=== PATIENT | male | born 1955 | race Caucasian/White ===

== ENCOUNTER 2021-01-22 16:22 | Outpatient (CLI) | payer MEDICARE ==
[2021-01-23 00:20] LABS: SARS-CoV-2 PCR by NAA Not Detected (NotDetected)
== END 2021-01-22 16:23 | disposition home or self-care (01) ==
LOC: LABBT 16:22
PROVIDERS: ATTEND Orthopaedic Surgery Hand Surgery
DX: Z01.818 Encounter for other preprocedural examination (principal); G56.02 Carpal tunnel syndrome, left upper limb; Z20.822 Contact with and (suspected) exposure to COVID-19
CPT/HCPCS: U0003; U0005

== ENCOUNTER 2021-01-27 11:32 | Day surgery (SDC) | payer MEDICARE ==
[2021-01-26 11:50] VITALS: BMI 40.6
[2021-01-27] MEDS ORDERED: Bacitracin Zinc Ointment 30 gm TUBE ONE (13:02)
[2021-01-27] MEDS ORDERED: Bupivacaine PF 0.5% 30 ML VIAL ONE (13:02)
[2021-01-27] MEDS ORDERED: Betamet Acet/Betamet Na Ph 30 MG/5 ML VIAL ONE (13:02)
[2021-01-27] MEDS ORDERED: Fentanyl 100 MCG/2 ML VIAL ONE (13:36)
[2021-01-27] MEDS ORDERED: Ondansetron PF 4 MG/2 ML Vial ONE (13:40)
[2021-01-27] MEDS ORDERED: PROPOFOL 200 MG/20 ML VIAL ONE (13:40)
[2021-01-27] MEDS ORDERED: Ketorolac Tromethamine 30 MG/ML VIAL ONE (13:40)
[2021-01-27] MEDS ORDERED: Dexamethasone 20 MG/5 ML VIAL ONE (13:40)
[2021-01-27] MEDS ORDERED: Lidocaine 1% PF 5 ML VIAL ONE (13:40)
== END 2021-01-27 15:55 | disposition home or self-care (01) ==
LOC: SDC 11:32
PROVIDERS: ATTEND Orthopaedic Surgery Hand Surgery
PROC: 01N50ZZ Release Median Nerve, Open Approach (ICD-10-PCS; principal; 2021-01-27)
DX: G56.02 Carpal tunnel syndrome, left upper limb (principal); E11.9 Type 2 diabetes mellitus without complications; E78.5 Hyperlipidemia, unspecified; I10 Essential (primary) hypertension; M17.9 Osteoarthritis of knee, unspecified; Z79.84 Long term (current) use of oral hypoglycemic drugs; Z79.899 Other long term (current) drug therapy; Z87.891 Personal history of nicotine dependence; Z88.2 Allergy status to sulfonamides
CPT/HCPCS: J0690; J0702; J1100; J1885; J2405; J2704; J3010; S0020

== ENCOUNTER 2021-05-12 07:38 | Outpatient (CLI) | payer MEDICARE | END 2021-05-12 07:39 | disposition home or self-care (01) | LOC: TBSIIMAG 07:38 | PROVIDERS: ATTEND Orthopaedic Surgery Hand Surgery | DX: S62.155A Nondisplaced fracture of hook process of hamate [unciform] bone, left wrist, initial encounter for closed fracture (principal); S63.592A Other specified sprain of left wrist, initial encounter ==

== ENCOUNTER 2021-07-28 13:55 | Emergency (ER) | payer MEDICARE, OTHER ==
[2021-07-28] MEDS ORDERED: Ketorolac Tromethamine 30 MG/ML VIAL ONE (15:42)
== END 2021-07-28 16:31 | disposition home or self-care (01) ==
LOC: ERS 13:55
DX: M51.36 Other intervertebral disc degeneration, lumbar region (principal); I10 Essential (primary) hypertension; E11.9 Type 2 diabetes mellitus without complications; E66.9 Obesity, unspecified; F17.210 Nicotine dependence, cigarettes, uncomplicated
CPT/HCPCS: 72100; 72220; 96372; J1885

== ENCOUNTER 2021-09-16 15:17 | Outpatient (CLI) | payer MEDICARE, OTHER | END 2021-09-16 15:18 | disposition home or self-care (01) | LOC: BICRAD 15:17 | PROVIDERS: ATTEND Internal Medicine Rheumatology | DX: M17.11 Unilateral primary osteoarthritis, right knee (principal); M25.561 Pain in right knee; M25.461 Effusion, right knee ==

== ENCOUNTER 2022-04-02 13:51 | Inpatient (IN) | payer MEDICARE ==
[2022-04-02] MEDS ORDERED: Cefepime 2 GM VIAL ONE (14:19)
[2022-04-02] MEDS ORDERED: VANCOMYCIN 2 GRAM/500 ML BAG 2 GM in Premix Bag 1 BAG IVPB SCH (14:45)
[2022-04-02 14:58] LABS: #Eosinphils 0.1 thou/uL (0.0-0.7); #Lymphocytes 1.7 thou/uL (1.20-3.40); #Monocytes 0.6 thou/uL (0.11-0.59); #Neutrophils 7.8 thou/uL (1.40-6.50); %Basophils 0.1 % (0.0-1.0); %Eosinophils 0.5 % (0.0-10.0); %Lymphocytes 16.6 % (21.0-51.0); %Monocytes 6.1 % (0.0-10.0); %Neutrophils 76.7 % (42.0-75.0); Mean Corpuscular HGB CONC 34.7 g/dL (32.0-36.0); Mean Corpuscular Hemoglobin 32.4 pg (27.0-31.0); Mean Corpuscular Volume 93.4 fL (78.0-98.0); Mean Platelet Volume 9.4 fL (7.4-10.4); Platelet Count 120 thou/uL (130-400); RBC Distribution Width 11.9 % (11.5-14.5); Red Blood Cell (RBC) Count 4.31 mill/uL (4.70-6.10); White Blood Cell (WBC) Count 10.2 thou/uL (4.8-10.8)
[2022-04-02 15:20] LABS: ALT (SGPT) 51 U/L (8-55); AST (SGOT) 35 U/L (5-34); Alkaline Phosphatase 59 U/L (40-110); Anion Gap 16 mmol/L (10-20); BUN (Urea Nitrogen) 21 mg/dL (8.4-25.7); Bilirubin, Total 0.7 mg/dL (0.2-1.2); Calc. Creatinine Clearance 0 mL/min (70-130); Calcium 8.8 mg/dL (7.8-10.44); Carbon Dioxide 22 mmol/L (23-31); Chloride 101 mmol/L (98-107); Estimated GFR 77; Globulin 3.2 g/dL (2.4-3.5); Glucose 295 mg/dL (80-115); Protein, Total 7.2 g/dL (5.8-8.1); Sodium 135 mmol/L (136-145)
[2022-04-02] MEDS ORDERED: Dextrose 50% Abboject 50 ML SYRINGE SLOW IVP PRN (15:57)
[2022-04-02] MEDS ORDERED: Dextrose 5% in Water 1,000 ML IV PRN (15:57)
[2022-04-02 16:24] LABS: Bilirubin Negative (Negative); Blood, Urine Negative (Negative); Clarity Clear (Clear); Glucose, Urine (Dipstick) Greater than 1000 mg/dL (Negative); Ketone, Urine Negative (Negative); Leukocyte Negative Leu/uL (Negative); Nitrite Negative (Negative); Protein, Urine (Dipstick) Negative (Neg-Trace); Specific Gravity, Urine 1.023 (1.002-1.036); Urobilinogen 6 mg/dL (Less than 2); pH, Urine 6.5 (5.0-9.0)
[2022-04-02 17:51] LABS: Lactic Acid 2.2 mmol/L (0.5-2.2)
[2022-04-02] MEDS: Sodium Chloride 0.9% 1,000 ML IV SCH (18:02)
[2022-04-02] MEDS: HumaLOG 300 UNITS/3 ML VIAL SC PRN ×2 (18:09→21:28)
[2022-04-02 20:18] VITALS: BMI 40.2
[2022-04-02] MEDS ORDERED: Vancomycin 1 GM in Premix Bag 1 BAG IVPB SCH (21:00)
[2022-04-03] MEDS: cefTRIAXone\\ROCEPHIN 1 GM in Sodium Chloride 0.9% 100 ML IVPB SCH (02:35)
[2022-04-03 05:57] LABS: #Basophils 0.1 thou/uL (0.0-0.2); #Eosinphils 0.1 thou/uL (0.0-0.7); #Lymphocytes 2.1 thou/uL (1.20-3.40); #Monocytes 0.6 thou/uL (0.11-0.59); #Neutrophils 3.6 thou/uL (1.40-6.50); %Basophils 0.8 % (0.0-1.0); %Eosinophils 1.1 % (0.0-10.0); %Lymphocytes 32.7 % (21.0-51.0); %Monocytes 9.1 % (0.0-10.0); %Neutrophils 56.3 % (42.0-75.0); Hemoglobin 12.5 g/dL (14.0-18.0); Mean Corpuscular HGB CONC 33.8 g/dL (32.0-36.0); Mean Corpuscular Hemoglobin 31.4 pg (27.0-31.0); Mean Corpuscular Volume 92.9 fL (78.0-98.0); Mean Platelet Volume 9.5 fL (7.4-10.4); Platelet Count 117 thou/uL (130-400); RBC Distribution Width 11.9 % (11.5-14.5); Red Blood Cell (RBC) Count 3.98 mill/uL (4.70-6.10); White Blood Cell (WBC) Count 6.4 thou/uL (4.8-10.8)
[2022-04-03 06:11] LABS: Anion Gap 14 mmol/L (10-20); BUN (Urea Nitrogen) 15 mg/dL (8.4-25.7); Calc. Creatinine Clearance 161 mL/min (70-130); Calcium 8.2 mg/dL (7.8-10.44); Carbon Dioxide 22 mmol/L (23-31); Chloride 105 mmol/L (98-107); Estimated GFR 94; Glucose 243 mg/dL (80-115); Potassium 3.9 mmol/L (3.5-5.1); Sodium 137 mmol/L (136-145)
[2022-04-03] MEDS: Vancomycin 1.5 GRAM/300 ML BAG 1.5 GM in Premix Bag 1 BAG IVPB SCH ×2 (06:15→18:42)
[2022-04-03] MEDS: Sodium Chloride 0.9% 1,000 ML IV SCH ×2 (06:15→18:42)
[2022-04-03] MEDS: HumaLOG 300 UNITS/3 ML VIAL SC PRN ×3 (06:20→20:43)
[2022-04-03] MEDS: Enoxaparin Sodium 40 MG/0.4 ML SYRINGE SC SCH (09:06)
[2022-04-03] MEDS ORDERED: Pioglitazone HCl 15 MG TAB PO SCH (10:15)
[2022-04-03] MEDS ORDERED: Tamsulosin HCl 0.4 MG CAP PO SCH (10:15)
[2022-04-03] MEDS: Gabapentin 300 MG CAP PO SCH ×2 (14:39→20:40)
[2022-04-03] MEDS: metFORMIN 500 MG TAB PO SCH (16:53)
[2022-04-04] MEDS: cefTRIAXone\\ROCEPHIN 1 GM in Sodium Chloride 0.9% 100 ML IVPB SCH (02:57)
[2022-04-04 05:27] LABS: #Eosinphils 0.2 thou/uL (0.0-0.7); #Lymphocytes 1.9 thou/uL (1.20-3.40); #Monocytes 0.5 thou/uL (0.11-0.59); %Basophils 0.5 % (0.0-1.0); %Lymphocytes 33.2 % (21.0-51.0); %Monocytes 9.5 % (0.0-10.0); %Neutrophils 52.8 % (42.0-75.0); Hemoglobin 13.2 g/dL (14.0-18.0); Mean Corpuscular HGB CONC 34.5 g/dL (32.0-36.0); Mean Corpuscular Hemoglobin 32.6 pg (27.0-31.0); Mean Corpuscular Volume 94.3 fL (78.0-98.0); Mean Platelet Volume 8.6 fL (7.4-10.4); Platelet Count 128 thou/uL (130-400); RBC Distribution Width 11.7 % (11.5-14.5); Red Blood Cell (RBC) Count 4.06 mill/uL (4.70-6.10); White Blood Cell (WBC) Count 5.6 thou/uL (4.8-10.8)
[2022-04-04 05:47] LABS: Vancomycin, Trough 10.6 ug/mL
[2022-04-04 05:49] LABS: Anion Gap 13 mmol/L (10-20); BUN (Urea Nitrogen) 10 mg/dL (8.4-25.7); Calc. Creatinine Clearance 165 mL/min (70-130); Calcium 8.5 mg/dL (7.8-10.44); Carbon Dioxide 22 mmol/L (23-31); Chloride 105 mmol/L (98-107); Estimated GFR 95; Glucose 254 mg/dL (80-115); Sodium 136 mmol/L (136-145)
[2022-04-04] MEDS: Vancomycin 1.5 GRAM/300 ML BAG 1.5 GM in Premix Bag 1 BAG IVPB SCH ×2 (06:15→18:23)
[2022-04-04] MEDS: metFORMIN 500 MG TAB PO SCH ×2 (06:15→16:01)
[2022-04-04] MEDS: Sodium Chloride 0.9% 1,000 ML IV SCH ×2 (06:17→23:22)
[2022-04-04] MEDS: HumaLOG 300 UNITS/3 ML VIAL SC PRN ×2 (06:25→16:00)
[2022-04-04] MEDS: Enoxaparin Sodium 40 MG/0.4 ML SYRINGE SC SCH (09:21)
[2022-04-04] MEDS: Pioglitazone HCl 15 MG TAB PO SCH (09:22)
[2022-04-04] MEDS: Gabapentin 300 MG CAP PO SCH ×3 (09:22→20:34)
[2022-04-04] MEDS: Tamsulosin HCl 0.4 MG CAP PO SCH (09:22)
[2022-04-04] MEDS ORDERED: Nicotine 21 MG PATCH TD SCH (12:15)
[2022-04-04] MEDS: glyBURIDE 5 MG TAB PO SCH (16:01)
[2022-04-04] MEDS: Acetaminophen 325 MG TAB PO PRN (20:34)
[2022-04-05] MEDS: cefTRIAXone\\ROCEPHIN 1 GM in Sodium Chloride 0.9% 100 ML IVPB SCH (02:54)
[2022-04-05 05:29] LABS: #Eosinphils 0.4 thou/uL (0.0-0.7); #Lymphocytes 2.2 thou/uL (1.20-3.40); #Monocytes 0.5 thou/uL (0.11-0.59); #Neutrophils 3.6 thou/uL (1.40-6.50); %Basophils 0.5 % (0.0-1.0); %Eosinophils 5.2 % (0.0-10.0); %Lymphocytes 33.4 % (21.0-51.0); %Monocytes 7.3 % (0.0-10.0); %Neutrophils 53.6 % (42.0-75.0); Hemoglobin 12.6 g/dL (14.0-18.0); Mean Corpuscular HGB CONC 33.1 g/dL (32.0-36.0); Mean Corpuscular Hemoglobin 30.9 pg (27.0-31.0); Mean Corpuscular Volume 93.4 fL (78.0-98.0); Mean Platelet Volume 8.2 fL (7.4-10.4); Platelet Count 157 thou/uL (130-400); RBC Distribution Width 11.7 % (11.5-14.5); Red Blood Cell (RBC) Count 4.07 mill/uL (4.70-6.10); White Blood Cell (WBC) Count 6.7 thou/uL (4.8-10.8)
[2022-04-05] MEDS: Vancomycin 1.5 GRAM/300 ML BAG 1.5 GM in Premix Bag 1 BAG IVPB SCH ×2 (06:13→20:28)
[2022-04-05 06:15] LABS: Anion Gap 12 mmol/L (10-20); BUN (Urea Nitrogen) 10 mg/dL (8.4-25.7); Calc. Creatinine Clearance 171 mL/min (70-130); Calcium 8.9 mg/dL (7.8-10.44); Carbon Dioxide 25 mmol/L (23-31); Chloride 104 mmol/L (98-107); Estimated GFR 96; Glucose 184 mg/dL (80-115); Potassium 4.1 mmol/L (3.5-5.1); Sodium 137 mmol/L (136-145)
[2022-04-05] MEDS: metFORMIN 500 MG TAB PO SCH ×2 (06:17→15:33)
[2022-04-05] MEDS: glyBURIDE 5 MG TAB PO SCH ×2 (06:17→15:33)
[2022-04-05] MEDS: HumaLOG 300 UNITS/3 ML VIAL SC PRN (06:18)
[2022-04-05] MEDS: Acetaminophen 325 MG TAB PO PRN (06:22)
[2022-04-05] MEDS: Pioglitazone HCl 15 MG TAB PO SCH (09:23)
[2022-04-05] MEDS: Tamsulosin HCl 0.4 MG CAP PO SCH (09:23)
[2022-04-05] MEDS: Gabapentin 300 MG CAP PO SCH ×3 (09:23→20:28)
[2022-04-05] MEDS: Enoxaparin Sodium 40 MG/0.4 ML SYRINGE SC SCH (09:23)
[2022-04-05] MEDS ORDERED: Nicotine 21 MG PATCH TD SCH (13:00)
[2022-04-05] MEDS ORDERED: Lisinopril 20 MG TAB PO SCH (16:00)
[2022-04-05] MEDS: Sodium Chloride 0.9% 1,000 ML IV SCH (17:04)
[2022-04-05 17:48] LABS: Vancomycin, Trough 14.2 ug/mL
[2022-04-06] MEDS: Acetaminophen 325 MG TAB PO PRN ×2 (01:45→09:28)
[2022-04-06] MEDS: cefTRIAXone\\ROCEPHIN 1 GM in Sodium Chloride 0.9% 100 ML IVPB SCH (01:45)
[2022-04-06] MEDS: metFORMIN 500 MG TAB PO SCH (06:11)
[2022-04-06] MEDS: Vancomycin 1.5 GRAM/300 ML BAG 1.5 GM in Premix Bag 1 BAG IVPB SCH (06:11)
[2022-04-06] MEDS: HumaLOG 300 UNITS/3 ML VIAL SC PRN (06:11)
[2022-04-06] MEDS: glyBURIDE 5 MG TAB PO SCH (06:11)
[2022-04-06 06:17] LABS: #Eosinphils 0.3 thou/uL (0.0-0.7); #Lymphocytes 2.1 thou/uL (1.20-3.40); #Monocytes 0.5 thou/uL (0.11-0.59); #Neutrophils 4.5 thou/uL (1.40-6.50); %Basophils 0.5 % (0.0-1.0); %Eosinophils 4.2 % (0.0-10.0); %Lymphocytes 28.3 % (21.0-51.0); %Monocytes 6.8 % (0.0-10.0); %Neutrophils 60.2 % (42.0-75.0); Hemoglobin 13.3 g/dL (14.0-18.0); Mean Corpuscular HGB CONC 33.5 g/dL (32.0-36.0); Mean Corpuscular Hemoglobin 31.4 pg (27.0-31.0); Mean Corpuscular Volume 93.6 fL (78.0-98.0); Mean Platelet Volume 8.1 fL (7.4-10.4); Platelet Count 188 thou/uL (130-400); RBC Distribution Width 11.8 % (11.5-14.5); Red Blood Cell (RBC) Count 4.25 mill/uL (4.70-6.10); White Blood Cell (WBC) Count 7.4 thou/uL (4.8-10.8)
[2022-04-06 06:34] LABS: Anion Gap 14 mmol/L (10-20); BUN (Urea Nitrogen) 12 mg/dL (8.4-25.7); Calc. Creatinine Clearance 146 mL/min (70-130); Calcium 9.2 mg/dL (7.8-10.44); Carbon Dioxide 24 mmol/L (23-31); Chloride 103 mmol/L (98-107); Estimated GFR 87; Glucose 231 mg/dL (80-115); Potassium 4.1 mmol/L (3.5-5.1); Sodium 137 mmol/L (136-145)
[2022-04-06] MEDS ORDERED: Lisinopril 20 MG TAB PO SCH (09:00)
[2022-04-06] MEDS: Gabapentin 300 MG CAP PO SCH (09:21)
[2022-04-06] MEDS: Enoxaparin Sodium 40 MG/0.4 ML SYRINGE SC SCH (09:21)
[2022-04-06] MEDS: Pioglitazone HCl 15 MG TAB PO SCH (09:21)
[2022-04-06] MEDS: Tamsulosin HCl 0.4 MG CAP PO SCH (09:22)
[2022-04-06] MEDS ORDERED: predniSONE 20 MG TAB PO SCH (09:45)
[2022-04-06] MEDS ORDERED: Furosemide 40 MG/4 ML VIAL SLOW IVP SCH (11:45)
[2022-04-06 11:51] VITALS: BP 83/55; TEMP 97.7
== END 2022-04-06 12:58 | disposition home or self-care (01) | DRG 871 ==
LOC: ERS 13:51 → SURG A 15:20
PROVIDERS: ADMIT Internal Medicine; ATTEND Internal Medicine
DX: A41.9 Sepsis, unspecified organism (principal); J18.9 Pneumonia, unspecified organism; L03.115 Cellulitis of right lower limb; L03.116 Cellulitis of left lower limb; E87.2 Acidosis; E11.9 Type 2 diabetes mellitus without complications; G89.29 Other chronic pain; I10 Essential (primary) hypertension; J43.9 Emphysema, unspecified; N40.0 Benign prostatic hyperplasia without lower urinary tract symptoms; F17.210 Nicotine dependence, cigarettes, uncomplicated; Z88.2 Allergy status to sulfonamides; Z79.899 Other long term (current) drug therapy; Z90.49 Acquired absence of other specified parts of digestive tract; Z98.890 Other specified postprocedural states
CPT/HCPCS: 36415; 36416; 70450; 71045; 71275; 80048; 80053; 80061; 80202; 80306; 80307; 81003; 81015; 82550; 83036; 83605; 83690; 83735; 83880; 84484; 85025; 85652; 87040; 87086; 87149; 93005; 94640; 96361; 96365; 96367; 96374; 96375; 96376; C9113; G0378; J0692; J0696; J1650; J1815; J1940; J2270; J2920; J2930; J3370; J3490; J7050; J7512; J7620; Q9967; U0002

== ENCOUNTER 2023-06-06 10:35 | Inpatient (IN) | payer MEDICARE ==
[2023-06-06 11:45] LABS: #Eosinphils 0.2 thou/uL (0.0-0.7); #Monocytes 0.6 thou/uL (0.11-0.59); %Basophils 0.3 % (0.0-1.0); %Eosinophils 3.4 % (0.0-10.0); %Lymphocytes 36.3 % (21.0-51.0); %Monocytes 9.9 % (0.0-10.0); %Neutrophils 49.9 % (42.0-75.0); Hematocrit 42.2 % (42.0-52.0); Hemoglobin 14.6 g/dL (14.0-18.0); Mean Corpuscular HGB CONC 34.6 g/dL (32.0-36.0); Mean Corpuscular Hemoglobin 31.2 pg (27.0-31.0); Mean Corpuscular Volume 90.2 fl (78.0-98.0); Platelet Count 188 10x3/uL (130-400); RBC Distribution Width 12.4 % (11.5-14.5); Red Blood Cell (RBC) Count 4.68 mill/uL (4.70-6.10)
[2023-06-06 12:10] LABS: ALT (SGPT) 27 U/L (8-55); AST (SGOT) 22 U/L (5-34); Albumin 4.7 g/dL (3.4-4.8); Alkaline Phosphatase 54 U/L (40-110); Anion Gap 15 mmol/L (10-20); BUN (Urea Nitrogen) 14 mg/dL (8.4-25.7); Bilirubin, Total 0.8 mg/dL (0.2-1.2); Calc. Creatinine Clearance 0 mL/min (70-130); Calcium 9.4 mg/dL (7.8-10.44); Carbon Dioxide 22 mmol/L (23-31); Chloride 101 mmol/L (98-107); Estimated GFR 80; Globulin 3.2 g/dL (2.4-3.5); Glucose 169 mg/dL (80-115); Potassium 4.1 mmol/L (3.5-5.1); Protein, Total 7.9 g/dL (5.8-8.1); Sodium 134 mmol/L (136-145)
[2023-06-06] MEDS ORDERED: Cefepime 2 GM VIAL ONE (13:22)
[2023-06-06] MEDS ORDERED: Vancomycin (BATCH) 2 GM in Premix 1 BAG IVPB SCH (13:30)
[2023-06-06] MEDS ORDERED: Glucagon 1 MG/ML KIT IM PRN (14:48)
[2023-06-06] MEDS ORDERED: Insulin Regular 300 UNITS/3 ML VIAL SC PRN (14:48)
[2023-06-06] MEDS ORDERED: Dextrose 50% Abboject 50 ML SYRINGE SLOW IVP PRN (14:48)
[2023-06-06] MEDS ORDERED: Dextrose 5% in Water 1,000 ML IV PRN (14:48)
[2023-06-06] MEDS ORDERED: Ondansetron PF 4 MG/2 ML Vial IVP PRN (14:49)
[2023-06-06] MEDS ORDERED: Senokot S 8.6-50 MG TAB PO PRN (14:49)
[2023-06-06] MEDS ORDERED: Calcium Carbonate 500 MG ChewTAB PO PRN (14:49)
[2023-06-06] MEDS ORDERED: Ondansetron ODT 4 MG TAB PO PRN (14:49)
[2023-06-06] MEDS ORDERED: hydrALAZINE 25 MG TAB PO PRN (14:52)
[2023-06-06 16:09] VITALS: BMI 42.0
[2023-06-06] MEDS: Acetaminophen 325 MG TAB PO PRN (21:31)
[2023-06-06] MEDS: Famotidine 20 MG TAB PO SCH (21:31)
[2023-06-06] MEDS: cefTRIAXone\\ROCEPHIN 2 GM in Sodium Chloride 0.9% 100 ML IVPB SCH (21:32)
[2023-06-07 04:59] LABS: Hematocrit 38.3 % (42.0-52.0); Hemoglobin 12.9 g/dL (14.0-18.0); Mean Corpuscular HGB CONC 33.7 g/dL (32.0-36.0); Mean Corpuscular Hemoglobin 30.8 pg (27.0-31.0); Mean Corpuscular Volume 91.4 fl (78.0-98.0); Mean Platelet Volume 10.4 fL (7.4-10.4); Platelet Count 163 10x3/uL (130-400); RBC Distribution Width 12.4 % (11.5-14.5); Red Blood Cell (RBC) Count 4.19 mill/uL (4.70-6.10); White Blood Cell (WBC) Count 5.3 10x3/uL (4.8-10.8)
[2023-06-07 05:15] LABS: Delete Auto Diff?? YES; Manual Diff?? YES
[2023-06-07 06:03] LABS: CellaVision Operator ID lab.sh2; Eosinophils 2 % (0-10); Lymphocytes 51 % (21-51); Monocytes 7 % (0-10); Neutrophil 41 % (42-75); Platelet Adequacy Comment Platelets Normal; Polychromasia SLIGHT = 2-3 cells HPF (0-2); Smudge Cells 14.9 %; Total Cell Count 101
[2023-06-07 07:12] LABS: ALT (SGPT) 25 U/L (8-55); AST (SGOT) 17 U/L (5-34); Albumin 4.1 g/dL (3.4-4.8); Alkaline Phosphatase 51 U/L (40-110); Anion Gap 13 mmol/L (10-20); BUN (Urea Nitrogen) 12 mg/dL (8.4-25.7); Bilirubin, Total 0.6 mg/dL (0.2-1.2); Calc. Creatinine Clearance 149 mL/min (70-130); Calcium 8.8 mg/dL (7.8-10.44); Carbon Dioxide 23 mmol/L (23-31); Chloride 104 mmol/L (98-107); Estimated GFR 89; Globulin 2.6 g/dL (2.4-3.5); Glucose 143 mg/dL (80-115); Magnesium 2.1 mg/dL (1.6-2.6); Potassium 3.9 mmol/L (3.5-5.1); Protein, Total 6.7 g/dL (5.8-8.1); Sodium 136 mmol/L (136-145)
[2023-06-07] MEDS: Gabapentin 300 MG CAP PO SCH ×2 (08:38→20:49)
[2023-06-07] MEDS: Tamsulosin HCl 0.4 MG CAP PO SCH (08:38)
[2023-06-07] MEDS: Famotidine 20 MG TAB PO SCH ×2 (08:38→20:49)
[2023-06-07] MEDS: Pioglitazone HCl 15 MG TAB PO SCH (08:38)
[2023-06-07] MEDS: Acetaminophen 325 MG TAB PO PRN (20:49)
[2023-06-07] MEDS: cefTRIAXone\\ROCEPHIN 2 GM in Sodium Chloride 0.9% 100 ML IVPB SCH (20:50)
[2023-06-08] MEDS: Insulin Regular 300 UNITS/3 ML VIAL SC PRN (06:30)
[2023-06-08] MEDS: Famotidine 20 MG TAB PO SCH ×2 (08:51→20:42)
[2023-06-08] MEDS: Pioglitazone HCl 15 MG TAB PO SCH (08:51)
[2023-06-08] MEDS: Tamsulosin HCl 0.4 MG CAP PO SCH (08:51)
[2023-06-08] MEDS: Gabapentin 300 MG CAP PO SCH ×2 (08:51→20:42)
[2023-06-08] MEDS: Vancomycin (BATCH) 2 GM in Premix 1 BAG IVPB SCH ×2 (11:36→23:01)
[2023-06-08] MEDS: cefTRIAXone\\ROCEPHIN 2 GM in Sodium Chloride 0.9% 100 ML IVPB SCH (20:41)
[2023-06-08] MEDS: Acetaminophen 325 MG TAB PO PRN (20:43)
[2023-06-08] MEDS ORDERED: Vancomycin 1 GM in Sodium Chloride 0.9% 250 ML 250 ML IVPB SCH (21:00)
[2023-06-09] MEDS: CEFAZOLIN 2 GM in Sodium Chloride 0.9% 100 ML IVPB SCH ×4 (01:48→23:33)
[2023-06-09] MEDS: Insulin Regular 300 UNITS/3 ML VIAL SC PRN (05:21)
[2023-06-09] MEDS: Acetaminophen 325 MG TAB PO PRN ×2 (09:04→20:18)
[2023-06-09] MEDS: Pioglitazone HCl 15 MG TAB PO SCH (09:04)
[2023-06-09] MEDS: Gabapentin 300 MG CAP PO SCH ×2 (09:04→20:13)
[2023-06-09] MEDS: Famotidine 20 MG TAB PO SCH ×2 (09:04→20:12)
[2023-06-09] MEDS: Tamsulosin HCl 0.4 MG CAP PO SCH (09:04)
[2023-06-09] MEDS ORDERED: Sodium Chloride 0.9% 100 ML ONE (15:47)
[2023-06-10] MEDS: CEFAZOLIN 2 GM in Sodium Chloride 0.9% 100 ML IVPB SCH (10:21)
[2023-06-10] MEDS: Pioglitazone HCl 15 MG TAB PO SCH (10:22)
[2023-06-10] MEDS: Famotidine 20 MG TAB PO SCH (10:22)
[2023-06-10] MEDS: Gabapentin 300 MG CAP PO SCH (10:22)
[2023-06-10] MEDS: Tamsulosin HCl 0.4 MG CAP PO SCH (10:22)
[2023-06-10 14:40] VITALS: BP 149/87; TEMP 97.4
== END 2023-06-10 12:55 | disposition home or self-care (01) | DRG 603 ==
LOC: ERS 10:35 → T4-B 14:09
PROVIDERS: ADMIT Internal Medicine; ATTEND Internal Medicine
DX: L03.115 Cellulitis of right lower limb (principal); E87.1 Hypo-osmolality and hyponatremia; I10 Essential (primary) hypertension; N40.0 Benign prostatic hyperplasia without lower urinary tract symptoms; M54.50 Low back pain, unspecified; G89.29 Other chronic pain; F17.210 Nicotine dependence, cigarettes, uncomplicated; E11.65 Type 2 diabetes mellitus with hyperglycemia; B35.1 Tinea unguium; Z88.2 Allergy status to sulfonamides; Z79.4 Long term (current) use of insulin; Z79.899 Other long term (current) drug therapy; Z79.2 Long term (current) use of antibiotics; Z98.890 Other specified postprocedural states; Z90.49 Acquired absence of other specified parts of digestive tract; Z98.41 Cataract extraction status, right eye; Z98.42 Cataract extraction status, left eye
CPT/HCPCS: 36415; 36416; 80053; 83735; 85025; 86140; 87040; 96365; 96367; J0692; J0696; J1815; J3370; J3490